=== PATIENT | female | born 1955 | race Caucasian/White ===

== ENCOUNTER → 2018-12-24 07:38 | Outpatient (CLI) | payer BC, SELFPAY ==
[2017-11-26 17:13] VITALS: BMI 26.9
[2018-12-24 10:13] LABS: Absolute Lymphocyte Count 1.28 X10^3/ul (0.83-4.51); Absolute Neutrophil Count 2.2 X10^3/uL (2.0-7.7); Basophil# 0.04 X10^3/uL; Eosinophil# 0.15 X10^3/uL; Eosinophils% 3.7 % (0-5); Hematocrit 40.7 % (37-47); Hemoglobin 13.1 g/dl (12.0-15.0); Lymphocyte # 1.28 X10^3/ul (4.0); Lymphocyte % 31.8 % (19-41); Mean Corp Hgb Conc 32.2 g/gl (32-36); Mean Corpuscular Hgb 28.9 pg (27.0-32.0); Mean Corpuscular Volume 89.8 fL (81-99); Mean Platelet Vol. 10.1 fl (6.2-12.0); Monocyte# 0.35 X10^3/uL; Monocyte% 8.7 % (0-10); Neutrophil % 54.8 % (47-70); Platelet Count 291 K/mm3 (150-450); RBC Distribution Width CV 12.8 % (11.6-14.6); RBC Distribution Width SD 41.6 fl (35.1-43.9); Red Blood Count 4.53 M/mm3 (4.2-5.4)
[2018-12-24 10:15] LABS: POSITIVE COUNT NO; POSITIVE DIFFERENTIAL NO; POSITIVE MORPHOLOGY NO
[2018-12-24 10:38] LABS: Anion Gap 9 (5-15); BUN 17 mg/dL (7-18); BUN/Creat Ratio 17.2 RATIO (10-20); Calcium,Total 8.6 mg/dL (8.5-10.1); Chloride 100 mmol/L (98-107); Cholesterol 213 mg/dL (200); Creatinine, Serum 0.99 mg/dL (0.55-1.02); EST Glomerular Filtration Rate 60 mL/min (>60); Est Glom Filt Rate - Afr Amer 73 mL/min (>60); Glucose 72 mg/dL (74-106); High Density Lipoprotein 86 mg/dL; Potassium 3.4 mmol/L (3.5-5.1); Sodium Level 137 mmol/L (136-145); Thyroid Stim Hormone (TSH) 1.28 uIU/mL (0.358-3.74); Triglycerides 41 mg/dL; Very Low Density Lipoprotein 8 mg/dL (5-40)
== END ==
PROVIDERS: Family Provider Family Medicine; PCP Family Medicine; Referring Provider Family Medicine; Visit Provider Family Medicine
DX: E78.00 Pure hypercholesterolemia, unspecified (principal); R00.2 Palpitations
CPT/HCPCS: 36415; 80048; 80061; 84443; 85025

== ENCOUNTER 2022-08-26 19:06 | Emergency (ER) | payer BC, SELFPAY ==
[2022-08-26 19:07] VITALS: BP 158/68; PULSE 120; RESP 16; TEMP 37.6; O2SAT 96; BMI 24.0
--- NOTE | 2022-08-26 19:47 | EKG12_ITS ---
Test Reason : CP Blood Pressure : / mmHG Vent. Rate : 106 BPM Atrial Rate : 106 BPM P-R Int : 130 ms QRS Dur : 070 ms QT Int : 330 ms P-R-T Axes : 069 011 047 degrees QTc Int : 438 ms Sinus tachycardia Nonspecific ST abnormality Abnormal ECG Confirmed by DANISHA MATAMOROS, MARTÍNEZ ([id number]), map editor NICHOLAS AYALA ([id number]) on 08/27/2022 9:22:18 AM Referred By: Confirmed By:MARTÍNEZ RAMAN MD
--- NOTE | 2022-08-26 19:48 | ED.VIS.CHEST ---
HPI History of Present Illness Chief Complaint: Chest Pain Informant: patient Onset/Context/Timing Onset: Today Quality: Positive for Tightness Location: Left Chest Current Severity: Mild Maximum Severity: Moderate Narrative Narrative: Patient present secondary to chest pain. She states she went to first woke up this morning she had some pain across her upper back as well as across the lower ribs. It went away rather quickly and she thought it was just related to arthritis. This afternoon she developed pain along the left lower ribs. Pain is worse with a deep breath or with twisting her trunk. She denies shortness of breath or sweats. She denies history of cardiac disease. [facility] Medical History (Updated 08/26/22 @ 22:[address] Mila Monique MD) Arthritis Home Medications NK 08/26/22 [History Last Taken Unknown] Allergy/AdvReac Type Severity Reaction Status Date / Time No Known Allergies Allergy Verified 06/06/15 10:24 Family History Mother Pulmonary embolism Father Acute leukemia Surgical History History of back surgery Social History Smoking Status: Never smoker alcohol intake: current alcohol intake frequency: other Alcohol type: wine details: once per week ROS ROS ED Constitutional Constitutional ED: Denies chills or fever(s) Eyes Eyes: Denies change in vision or discharge from eye(s) ENT ENT ED: Denies discharge from eye(s), rhinorrhea or sore throat Cardiovascular Cardiovascular: Reports chest pain; Denies palpitations Respiratory/Chest Respiratory/Chest: Denies cough or dyspnea Gastrointestinal Gastrointestinal: Denies abdominal pain, diarrhea, nausea or vomiting Genitourinary Genitourinary ED: Denies difficulty urinating or dysuria Musculoskeletal Musculoskeletal: Denies back pain or extremity pain Integumentary Denies Abrasions or rash Neurologic Neurologic: Denies headache(s) or weakness Allergic/Immunologic Allergic/Immunologic ED: Denies lip swelling or urticaria EXAM Physical Exam Const Vital Signs: 08/26/22 19:07 08/26/22 19:07 08/26/22 19:16 Temperature 99.6 F H 99.6 F H Temperature Source Temporal Temporal Pulse Rate 120 H 120 H Respiratory Rate 16 16 Respiratory Effort Normal Non-Labored Blood Pressure 158/68 H 158/68 H Blood Pressure Mean 98 98 Pulse Ox 96 96 Oxygen Delivery Method Room Air 08/26/22 19:54 Temperature Temperature Source Pulse Rate Respiratory Rate Respiratory Effort Blood Pressure Blood Pressure Mean Pulse Ox 96 Oxygen Delivery Method Room Air Positive well nourished and well developed General Appearance ED: well developed HEENT Reports normocephalic and head/scalp atraumatic Eyes PERRL and EOMs intact bilaterally Neck supple Chest Wall inspection of chest normal and palpation of chest normal Resp normal respiratory effort and clear to auscultation bilaterally Cardio regular rate and regular rhythm GI normal to inspection, nondistended, normoactive bowel sounds Palpation: soft Back/Spine no CVA tenderness Extremity normal to inspection Neuro oriented x3 and no sensory deficits noted Sensorium / Orientation: alert Motor Exam: strength 5/5 throughout Psych mental status grossly normal Skin no rashes or lesions noted Heart Score History: Slightly/Non-Suspicious ECG: Normal Age: >/= 65 years Risk Factors: No Risk Factors Troponin: </= Normal Limit Score: 2 MDM MDM MDM Narrative Medical decision making narrative: Patient given aspirin on arrival along with IV fluids. EKG, chest x-ray, lab work obtained. Lab Data Attestation: I reviewed the patient's lab results. Labs: Laboratory Results - last 24 hr 08/26/22 08/26/22 08/26/22 19:25 19:25 19:25 WBC 15.7 H RBC 4.42 Hgb 13.0 Hct 39.9 MCV 90.3 MCH 29.4 MCHC 32.6 RDW Std Deviation 42.5 RDW Coeff of Fernando 12.7 Plt Count 301 MPV 9.9 Immature Gran % (Auto) 0.400 Neut % (Auto) 89.8 H Lymph % (Auto) 4.1 L [place] % (Auto) 5.4 Eos % (Auto) 0.0 Baso % (Auto) 0.3 Absolute Neuts (auto) 14.1 H Absolute Lymphs (auto) 0.65 L Nucleated RBC % 0 D-Dimer Quant (PE/DVT) 0.29 Sodium 138 Potassium 3.8 Chloride 102 Carbon Dioxide 30.0 Anion Gap 6 BUN 20 H Creatinine 0.91 Estim Creat Clear Calc 48.75 Est GFR (MDRD) Af Amer 80 Est GFR (MDRD) Non-Af 66 BUN/Creatinine Ratio 22.0 H Glucose 125 H Calcium 9.1 Troponin I High Sens 4 08/26/22 21:57 WBC RBC Hgb Hct MCV MCH MCHC RDW Std Deviation RDW Coeff of Fernando Plt Count MPV Immature Gran % (Auto) Neut % (Auto) Lymph % (Auto) [place] % (Auto) Eos % (Auto) Baso % (Auto) Absolute Neuts (auto) Absolute Lymphs (auto) Nucleated RBC % D-Dimer Quant (PE/DVT) Sodium Potassium Chloride Carbon Dioxide Anion Gap BUN Creatinine Estim Creat Clear Calc Est GFR (MDRD) Af Amer Est GFR (MDRD) Non-Af BUN/Creatinine Ratio Glucose Calcium Troponin I High Sens 4 Radiography Chest X-Ray - ED: 1 View, Read by ED Physician, Normal, Heart, Lungs and Mediastinum Diagnostic Testing: Clinical Impression(s) from Imaging Studies Chest X-Ray 08/26/22 20:01 IMPRESSION: There are no acute findings. Electronically Signed: David Coker MD at 20:24 EDT Reading Location ID and State: [facility] / [place] , Service support , EKG Initial EKG: Attestation: I personally reviewed and interpreted this EKG as follows: Interpretation: Sinus Tachycardia (Sinus tach at 106 with subtle, [address] depression.) Treatment and Re-Evaluation Narrative: Repeat evaluation patient resting comfortably. CBC and chemistry studies unremarkable. D-dimer negative. Initial troponin is 4. Chest x-ray per my interpretation reveals no acute abnormality. Radiology interpretation is reviewed. Repeat 2-hour troponin is also 4. Patient was doing physical activity this weekend cleaning out horse stalls. My suspicion is she has chest wall strain from this. I see no evidence of acute cardiac injury. She will be discharged to follow-up. Return instructions provided. Discharge Plan Triage Chief Complaint: Chest Pain ED Provider: Mila Monique Dx/Rx/DC Orders Clinical Impression: Chest pain Instructions: ED Chest Pain, Uncertain Cause Prescriptions: No Action NK Primary Care Provider: Nitza Siddiqui Referrals: Nitza Siddiqui MD [Primary Care Provider] - As soon as possible Bonifacio Brooks MD [Non-Staff] - Disposition Disposition: Home, Self Care
[2022-08-26] MEDS: Aspirin 81 MG TAB.CHEW 324 MG PO (19:53)
[2022-08-26] MEDS: 0.9% Normal Saline 1,000 ML 150 ML IV (19:53)
[2022-08-26 19:54] VITALS: O2SAT 96
[2022-08-26 19:58] LABS: Absolute Lymphocyte Count 0.65 X10^3/uL (0.83-4.51); Absolute Neutrophil Count 14.1 X10^3/uL (2.0-7.7); Basophil# 0.05 X10^3/uL; Basophil% 0.3 % (0-1); Hematocrit 39.9 % (37-47); Lymphocyte # 0.65 X10^3/ul (0.83-4.51); Lymphocyte % 4.1 % (19-41); Mean Corp Hgb Conc 32.6 g/dL (32-36); Mean Corpuscular Hgb 29.4 pg (27.0-32.0); Mean Corpuscular Volume 90.3 fL (81-99); Mean Platelet Vol. 9.9 fl (6.2-12.0); Monocyte# 0.85 X10^3/uL; Monocyte% 5.4 % (0-10); NRBC Flagged by Analyzer 0 % (0-5); Neutrophil % 89.8 % (47-70); Platelet Count 301 K/mm3 (150-450); RBC Distribution Width CV 12.7 % (11.6-14.6); RBC Distribution Width SD 42.5 fl (35.1-43.9); Red Blood Count 4.42 M/mm3 (4.2-5.4); White Blood Count 15.7 K/mm3 (4.4-11.0)
--- NOTE | 2022-08-26 20:01 | RAD_ITS ---
STUDY: X-RAY CHEST REASON FOR EXAM: Female, 67 years old. chest pain TECHNIQUE: XR Chest 1 View COMPARISON: None FINDINGS: Normal visualized aortic arch and descending thoracic aorta. There are diffuse degenerative changes of the visualized thoracic spine. There is degenerative osteoarthritis of the bilateral shoulders. There is no demonstrated pleural abnormality. Normal size heart. Normal mediastinum and holly. Normal visualized pulmonary arteries. There is no demonstrated abnormality of the visualized soft tissue structures of the upper abdomen. RAD/Chest 1 View (Portable) IMPRESSION: There are no acute findings. Electronically Signed: David Coker MD at 20:24 EDT ,
[2022-08-26 20:06] LABS: D-Dimer Quantitative (DVT/PE) 0.29 FEU/ug/m (0.27-0.49)
[2022-08-26 20:12] LABS: Anion Gap 6 (5-15); BUN 20 mg/dL (7-18); Calcium,Total 9.1 mg/dL (8.5-10.1); Chloride 102 mmol/L (98-107); Creatinine, Serum 0.91 mg/dL (0.55-1.02); EST Glomerular Filtration Rate 66 mL/min (>60); Est Glom Filt Rate - Afr Amer 80 mL/min (>60); Estimated Creatinine Clearance 48.75 ml/min; Glucose 125 mg/dL (74-106); Potassium 3.8 mmol/L (3.5-5.1); Sodium Level 138 mmol/L (136-145); Troponin-I HS (w/2H Reflex) 4 pg/mL (3.0-54.0)
[2022-08-26 21:53] LABS: Reflex Troponin-HS? (from REC) Y
[2022-08-26 22:25] LABS: Troponin-I HS 4 pg/mL (3.0-54.0)
[2022-08-26 22:37] VITALS: PULSE 96; O2SAT 96
== END 2022-08-26 22:40 | disposition home or self-care (01) ==
PROVIDERS: Emergency Provider Emergency Medicine; PCP Family Medicine; Visit Provider Emergency Medicine
DX: R07.9 Chest pain, unspecified (principal)
CPT/HCPCS: 71045; 80048; 84484; 85025; 85379; 93005; 99285; J7030; A4216

== ENCOUNTER 2025-02-15 12:17 | Outpatient (CLI) | payer MEDICARE, OTHER, SELFPAY ==
[2025-02-15 15:38] LABS: Erythrocyte Sedimentation Rate 5 mm/hr (0-30)
[2025-02-15 17:33] LABS: Hemoglobin A1c 5.8 % (<=5.6)
[2025-02-15 17:51] LABS: Rheumatoid Factor < 10.0 IU/mL (<15); Uric Acid 5.2 mg/dL (2.6-6.0)
[2025-02-17 12:08] LABS: ANTINUCLEAR ANTIBODIES DIRECT Negative (Negative)
[2025-02-23 18:08] LABS: CCP IgG Antibodies 16 units (0-19); HLA B27 Negative (.)
== END 2025-02-15 23:59 | disposition home or self-care (01) ==
PROVIDERS: PCP Family Medicine; Referring Provider Orthopaedic Surgery; Visit Provider Orthopaedic Surgery
DX: M19.049 Primary osteoarthritis, unspecified hand (principal)
CPT/HCPCS: 36415; 81374; 83036; 84550; 85652; 86038; 86200; 86431